=== PATIENT | male | born 1945 | race Caucasian/White ===

== ENCOUNTER 2017-11-05 19:36 | Inpatient (IN) | payer MEDICARE ==
[~2017-11-05] VITALS: Ht 170.2 cm; Wt 87.7 kg
[~2017-11-05 19:36] MED LIST: APIX2.5T PO; METO-304 PO; PANT40TA4 PO; PRO40 PO
[2017-11-05 19:40] VITALS: BP_SYST 114
[2017-11-05] MEDS ORDERED: methylPREDNISolone SOD SUCC/PF 62.5 MG/ML VIAL IVP ONE (22:15)
[2017-11-05] MEDS ORDERED: IPRATROPIUM/ALBUTEROL SULFATE 3 ML AMPUL.NEB INH ONE (22:15)
[2017-11-05 22:48] LABS: BASOPHILS % (AUTO) 0.5 % (0.0-2.0); EOSINOPHILS # (AUTO) 0.1 K/uL (0.0-0.4); EOSINOPHILS % (AUTO) 1.2 % (0.0-4.0); HEMATOCRIT 34.6 % (36-54); HEMOGLOBIN 10.9 g/dL (14.0-18.0); LYMPHOCYTES # (AUTO) 0.6 K/uL (1.0-5.5); LYMPHOCYTES % (AUTO) 12.8 % (20.5-51.5); MEAN CORPUSCULAR HEMOGLOBIN 29 pg (27-31); MEAN CORPUSCULAR HGB CONC 31 % (32-36); MEAN CORPUSCULAR VOLUME 94 fL (79.0-98.0); MONOCYTES # (AUTO) 0.3 K/uL (0.0-1.0); MONOCYTES % (AUTO) 6.8 % (1.7-9.3); NEUTROPHILS # (AUTO) 3.4 K/uL (1.8-7.7); NEUTROPHILS % (AUTO) 78.7 % (40.0-70.0); PLATELET COUNT (AUTO) 157 K/uL (130-430); RED BLOOD CELL COUNT(AUTO) 3.69 MIL/uL (4.2-6.2); RED CELL DISTRIBUTION WIDTH 16.3 % (9.0-15.0); WHITE BLOOD COUNT (AUTO) 4.4 K/uL (4.8-10.8)
[2017-11-05 23:02] LABS: ALANINE AMINOTRANSFERASE 29 U/L (12-78); ALBUMIN 3.1 g/dL (3.4-4.8); ANION GAP 12 (5-15); ASPARTATE AMINOTRANSFERASE 15 U/L (10-37); CHLORIDE 108 mmol/L (98-107); CREATININE 4.33 mg/dL (0.55-1.30); GLUCOSE 96 mg/dL (70-99); LIPASE 111 U/L (73-393); POTASSIUM 4.8 mmol/L (3.5-5.1); SODIUM SERUM 144 mmol/L (136-145); TOTAL BILIRUBIN 0.6 mg/dL (0.0-1.0); UREA NITROGEN, BLOOD 56 mg/dL (8-21)
[2017-11-06 00:29] LABS: BILIRUBIN,URINE NEGATIVE (NEGATIVE); BLOOD, URINE NEGATIVE (NEGATIVE); CLARITY/URINE CLEAR (CLEAR); COLOR,URINE YELLOW (YELLOW); GLUCOSE,URINE NEGATIVE (NEGATIVE); KETONES,URINE NEGATIVE (NEGATIVE); LEUKOCYTE ESTERASE ,URINE NEGATIVE (NEGATIVE); NITRITE, URINE NEGATIVE (NEGATIVE); PROTEIN URINE 3+ (NEGATIVE)
[2017-11-06 00:35] LABS: BACTERIA,URINE RARE /HPF (None Seen); RBC,URINE 0-3 /HPF (0-3); WBC,URINE 0-3 /HPF (0-3)
[2017-11-06 00:49] VITALS: BP_SYST 140
[2017-11-06] MEDS ORDERED: AZITHROMYCIN 500 MG in NS 250 ML IV ONE (01:30)
[2017-11-06] MEDS ORDERED: PIPERACILLIN/TAZOBACTAM 2.25 GM in NS 50 ML IV ONE (01:30)
[2017-11-06] MEDS ORDERED: AZITHROMYCIN 500 MG/VIAL (ZITHROMAX) IV ONE (02:16)
[2017-11-06] MEDS ORDERED: PIPERACILLIN/TAZOBACTAM 2.25 GM VIAL IV ONE (02:16)
[2017-11-06] MEDS: PIPERACILLIN/TAZOBACTAM 2.25 GM in NS 50 ML IV SCH ×3 (06:01→17:11)
[2017-11-06 06:47] VITALS: BP_SYST 140
[2017-11-06 08:00] VITALS: BP_SYST 128; BP_SYST 135
[2017-11-06] MEDS ORDERED: APIXABAN 2.5 MG TABLET PO ONE (09:45)
[2017-11-06] MEDS ORDERED: METOPROLOL SUCCINATE 25 MG TAB.SR.24H (TOPROL XL) PO ONE (09:45)
[2017-11-06] MEDS ORDERED: PANTOPRAZOLE SODIUM 40 MG TAB PO ONE (09:45)
[2017-11-06] MEDS ORDERED: DEXTROSE 50% JECT 50 ML DISP.SYRIN IVP PRN (10:00)
[2017-11-06] MEDS ORDERED: INSULIN REGULAR, HUMAN 100 UNITS/ML, 10 ML VIAL (novoLIN R) SUBCUT PRN (10:00)
[2017-11-06 11:29] VITALS: BP_SYST 119
[2017-11-06] MEDS: IPRATROPIUM/ALBUTEROL SULFATE 3 ML AMPUL.NEB INH SCH ×2 (13:23→22:58)
[2017-11-06] MEDS ORDERED: FUROSEMIDE 40 MG/4 ML VIAL IVP SCH (15:00)
[2017-11-06 15:26] VITALS: BP_SYST 100
[2017-11-06] MEDS ORDERED: IPRATROPIUM/ALBUTEROL SULFATE 3 ML AMPUL.NEB INH PRN ×2 (17:15)
[2017-11-06] MEDS ORDERED: methylPREDNISolone SOD SUCC/PF 62.5 MG/ML VIAL IVP SCH (17:15)
[2017-11-06] MEDS ORDERED: CALCITRIOL 0.25 MCG CAPSULE PO SCH (17:15)
[2017-11-06 19:45] VITALS: BP_SYST 104
[2017-11-06] MEDS ORDERED: APIXABAN 2.5 MG TABLET PO SCH (21:00)
[2017-11-06] MEDS: CALCIUM ACETATE 667 MG CAP PO SCH (21:46)
[2017-11-06] MEDS: methylPREDNISolone SOD SUCC 40 MG/ML VIAL IVP SCH (21:51)
[2017-11-06] MEDS: METOPROLOL SUCCINATE 25 MG TAB.SR.24H (TOPROL XL) PO SCH (21:52)
[2017-11-06] MEDS: AZITHROMYCIN 500 MG in NS 250 ML IV SCH (21:52)
[2017-11-07] VITALS (8 sets, daily range): BP systolic 107–131
[2017-11-07] MEDS: PIPERACILLIN/TAZOBACTAM 2.25 GM in NS 50 ML IV SCH ×5 (00:50→23:36)
[2017-11-07] MEDS: TEMAZEPAM 7.5 MG CAPSULE PO PRN ×2 (00:50→23:36)
[2017-11-07] MEDS: IPRATROPIUM/ALBUTEROL SULFATE 3 ML AMPUL.NEB INH SCH ×4 (02:36→19:38)
[2017-11-07] MEDS: methylPREDNISolone SOD SUCC 40 MG/ML VIAL IVP SCH ×2 (05:45→21:46)
[2017-11-07 08:18] LABS: BASOPHILS % (AUTO) 0.1 % (0.0-2.0); EOSINOPHILS % (AUTO) 0.1 % (0.0-4.0); HEMATOCRIT 30.7 % (36-54); HEMOGLOBIN 9.9 g/dL (14.0-18.0); LYMPHOCYTES # (AUTO) 0.4 K/uL (1.0-5.5); MEAN CORPUSCULAR HEMOGLOBIN 30 pg (27-31); MEAN CORPUSCULAR HGB CONC 32 % (32-36); MEAN CORPUSCULAR VOLUME 92 fL (79.0-98.0); MONOCYTES # (AUTO) 0.3 K/uL (0.0-1.0); NEUTROPHILS # (AUTO) 4.7 K/uL (1.8-7.7); NEUTROPHILS % (AUTO) 86.8 % (40.0-70.0); PLATELET COUNT (AUTO) 129 K/uL (130-430); RED BLOOD CELL COUNT(AUTO) 3.36 MIL/uL (4.2-6.2); WHITE BLOOD COUNT (AUTO) 5.4 K/uL (4.8-10.8)
[2017-11-07 08:51] LABS: ANION GAP 13 (5-15); CHLORIDE 107 mmol/L (98-107); CHOLESTEROL 95 mg/dL (<200); CREATININE 4.46 mg/dL (0.55-1.30); GLUCOSE 100 mg/dL (70-99); HDL CHOLESTEROL 36 mg/dL (>45); LDL CHOLESTEROL 56 mg/dL (<100); LIPASE 107 U/L (73-393); PHOSPHORUS 6.6 mg/dL (2.7-4.5); POTASSIUM 4.7 mmol/L (3.5-5.1); SODIUM SERUM 144 mmol/L (136-145); THYROID STIMULATING HORMONE 0.68 uIu/mL (0.34-4.82); TRIGLYCERIDES 60 mg/dL (30-150); UREA NITROGEN, BLOOD 63 mg/dL (8-21)
[2017-11-07 08:56] LABS: CALCIUM 6.3 mg/dL (8.4-11.0)
[2017-11-07] MEDS: CALCITRIOL 0.25 MCG CAPSULE PO SCH (09:17)
[2017-11-07] MEDS: CALCIUM ACETATE 667 MG CAP PO SCH ×3 (09:17→17:19)
[2017-11-07] MEDS: FUROSEMIDE 40 MG/4 ML VIAL IVP SCH (09:18)
[2017-11-07] MEDS: METOPROLOL SUCCINATE 25 MG TAB.SR.24H (TOPROL XL) PO SCH ×2 (09:18→21:45)
[2017-11-07] MEDS: PANTOPRAZOLE SODIUM 40 MG TAB PO SCH (09:19)
[2017-11-07] MEDS ORDERED: HEPARIN SODIUM,PORCINE 5000 UNITS/ML VIAL ONE ×2 (10:18→18:32)
[2017-11-07] MEDS ORDERED: HEPARIN SODIUM,PORCINE 5000 UNITS/ML VIAL MC ONE (11:00)
[2017-11-07] MEDS ORDERED: HEPARIN SODIUM, PORCINE 10,000 UNITS/ 10 ML VIAL IV SCH (18:15)
[2017-11-07] MEDS ORDERED: HEPARIN SODIUM, PORCINE 10,000 UNITS/ 10 ML VIAL ONE (18:21)
[2017-11-07] MEDS ORDERED: HEPARIN SODIUM,PORCINE 5000 UNITS/ML VIAL MC SCH (18:45)
[2017-11-07] MEDS: AZITHROMYCIN 500 MG in NS 250 ML IV SCH (21:45)
[2017-11-08 00:39] VITALS: BP_SYST 120
[2017-11-08] MEDS: IPRATROPIUM/ALBUTEROL SULFATE 3 ML AMPUL.NEB INH SCH ×3 (01:22→18:59)
[2017-11-08 04:00] VITALS: BP_SYST 128
[2017-11-08] MEDS: PIPERACILLIN/TAZOBACTAM 2.25 GM in NS 50 ML IV SCH ×4 (06:10→23:28)
[2017-11-08 08:00] VITALS: BP_SYST 153
[2017-11-08] MEDS: CALCITRIOL 0.25 MCG CAPSULE PO SCH (08:27)
[2017-11-08] MEDS: methylPREDNISolone SOD SUCC 40 MG/ML VIAL IVP SCH ×2 (08:29→21:13)
[2017-11-08] MEDS: FUROSEMIDE 40 MG/4 ML VIAL IVP SCH (08:30)
[2017-11-08] MEDS: CALCIUM ACETATE 667 MG CAP PO SCH ×3 (08:30→17:41)
[2017-11-08] MEDS: PANTOPRAZOLE SODIUM 40 MG TAB PO SCH (08:32)
[2017-11-08] MEDS: METOPROLOL SUCCINATE 25 MG TAB.SR.24H (TOPROL XL) PO SCH ×2 (08:34→21:13)
[2017-11-08 12:53] VITALS: BP_SYST 123
[2017-11-08 16:39] VITALS: BP_SYST 138
[2017-11-08 19:48] VITALS: BP_SYST 128
[2017-11-08] MEDS: AZITHROMYCIN 500 MG in NS 250 ML IV SCH (21:10)
[2017-11-09] MEDS: IPRATROPIUM/ALBUTEROL SULFATE 3 ML AMPUL.NEB INH SCH ×4 (00:27→19:49)
[2017-11-09 00:55] VITALS: BP_SYST 127
[2017-11-09] MEDS: PIPERACILLIN/TAZOBACTAM 2.25 GM in NS 50 ML IV SCH ×4 (05:06→23:46)
[2017-11-09 07:53] LABS: BASOPHILS % (AUTO) 0.2 % (0.0-2.0); HEMATOCRIT 32.6 % (36-54); HEMOGLOBIN 10.3 g/dL (14.0-18.0); LYMPHOCYTES # (AUTO) 0.2 K/uL (1.0-5.5); LYMPHOCYTES % (AUTO) 2.7 % (20.5-51.5); MEAN CORPUSCULAR HEMOGLOBIN 29 pg (27-31); MEAN CORPUSCULAR HGB CONC 32 % (32-36); MEAN CORPUSCULAR VOLUME 92 fL (79.0-98.0); MONOCYTES # (AUTO) 0.2 K/uL (0.0-1.0); MONOCYTES % (AUTO) 3.6 % (1.7-9.3); NEUTROPHILS # (AUTO) 5.2 K/uL (1.8-7.7); NEUTROPHILS % (AUTO) 93.5 % (40.0-70.0); PLATELET COUNT (AUTO) 94 K/uL (130-430); RED BLOOD CELL COUNT(AUTO) 3.54 MIL/uL (4.2-6.2); WHITE BLOOD COUNT (AUTO) 5.6 K/uL (4.8-10.8)
[2017-11-09] MEDS: CALCIUM ACETATE 667 MG CAP PO SCH ×3 (08:00→17:58)
[2017-11-09 08:10] LABS: ANION GAP 12 (5-15); CALCIUM 7.4 mg/dL (8.4-11.0); CHLORIDE 103 mmol/L (98-107); CREATININE 4.02 mg/dL (0.55-1.30); GLUCOSE 132 mg/dL (70-99); POTASSIUM 4.1 mmol/L (3.5-5.1); SODIUM SERUM 141 mmol/L (136-145); UREA NITROGEN, BLOOD 54 mg/dL (8-21)
[2017-11-09 08:18] LABS: ALANINE AMINOTRANSFERASE 24 U/L (12-78); ALBUMIN 2.8 g/dL (3.4-4.8); ASPARTATE AMINOTRANSFERASE 16 U/L (10-37); TOTAL BILIRUBIN 0.6 mg/dL (0.0-1.0)
[2017-11-09 08:26] VITALS: BP_SYST 138
[2017-11-09] MEDS: PANTOPRAZOLE SODIUM 40 MG TAB PO SCH (10:02)
[2017-11-09] MEDS: METOPROLOL SUCCINATE 25 MG TAB.SR.24H (TOPROL XL) PO SCH ×2 (10:03→21:19)
[2017-11-09] MEDS: CALCITRIOL 0.25 MCG CAPSULE PO SCH (10:03)
[2017-11-09] MEDS: FUROSEMIDE 40 MG/4 ML VIAL IVP SCH (10:04)
[2017-11-09 11:31] VITALS: BP_SYST 134
[2017-11-09 12:07] LABS: HEPATITIS A AB, IgM Negative (Negative); HEPATITIS B CORE AB, IgM Negative (Negative); HEPATITIS B SURFACE AG Negative (Negative)
[2017-11-09 15:32] VITALS: BP_SYST 122
[2017-11-09] MEDS: VITAMIN B COMPLEX WITH C TAB/CAP PO SCH (16:15)
[2017-11-09 16:35] LABS: TOTAL IRON BIND. CAPACITY 364 ug/dL (250-450)
[2017-11-09] MEDS ORDERED: THIAMINE HCL 100 MG TABLET PO ONE (17:00)
[2017-11-09] MEDS ORDERED: CYANOCOBALAMIN 1000 mCg TABLET PO ONE (17:00)
[2017-11-09 20:00] VITALS: BP_SYST 131
[2017-11-09] MEDS: AZITHROMYCIN 500 MG in NS 250 ML IV SCH (21:14)
[2017-11-09] MEDS: PREDNISONE 20 MG TABLET PO SCH (21:19)
[2017-11-09 23:24] VITALS: BP_SYST 117
[2017-11-10] MEDS: IPRATROPIUM/ALBUTEROL SULFATE 3 ML AMPUL.NEB INH SCH ×4 (00:37→19:00)
[2017-11-10] MEDS: TEMAZEPAM 7.5 MG CAPSULE PO PRN (00:44)
[2017-11-10] MEDS: PIPERACILLIN/TAZOBACTAM 2.25 GM in NS 50 ML IV SCH ×3 (05:35→20:33)
[2017-11-10 08:31] VITALS: BP_SYST 133
[2017-11-10] MEDS: FUROSEMIDE 40 MG/4 ML VIAL IVP SCH (08:34)
[2017-11-10] MEDS: CALCIUM ACETATE 667 MG CAP PO SCH ×3 (08:34→18:00)
[2017-11-10] MEDS: CALCITRIOL 0.25 MCG CAPSULE PO SCH (08:34)
[2017-11-10] MEDS: FERROUS SULFATE 325 MG TABLET.DR PO SCH ×2 (08:36→20:32)
[2017-11-10] MEDS: PANTOPRAZOLE SODIUM 40 MG TAB PO SCH (08:36)
[2017-11-10] MEDS: THIAMINE HCL 100 MG TABLET PO SCH (08:36)
[2017-11-10] MEDS: PREDNISONE 20 MG TABLET PO SCH ×2 (08:36→20:32)
[2017-11-10] MEDS: CYANOCOBALAMIN 1000 mCg TABLET PO SCH (08:36)
[2017-11-10] MEDS: METOPROLOL SUCCINATE 25 MG TAB.SR.24H (TOPROL XL) PO SCH ×2 (08:37→20:39)
[2017-11-10] MEDS: VITAMIN B COMPLEX WITH C TAB/CAP PO SCH (08:37)
[2017-11-10 09:53] VITALS: BP_SYST 133
[2017-11-10 11:36] VITALS: BP_SYST 134
[2017-11-10 15:12] VITALS: BP_SYST 143
[2017-11-10] MEDS ORDERED: NACL 0.9% 1,000 ML IV SCH (17:16)
[2017-11-10 19:08] VITALS: BP_SYST 121
[2017-11-10] MEDS: AZITHROMYCIN 500 MG in NS 250 ML IV SCH (20:33)
[2017-11-10] MEDS: APIXABAN 2.5 MG TABLET PO SCH (21:00)
[2017-11-11 00:30] VITALS: BP_SYST 112
[2017-11-11] MEDS: PIPERACILLIN/TAZOBACTAM 2.25 GM in NS 50 ML IV SCH ×2 (00:44→05:34)
[2017-11-11] MEDS: IPRATROPIUM/ALBUTEROL SULFATE 3 ML AMPUL.NEB INH SCH ×3 (00:57→08:03)
[2017-11-11 07:56] VITALS: BP_SYST 121
[2017-11-11] MEDS: CALCITRIOL 0.25 MCG CAPSULE PO SCH (08:59)
[2017-11-11] MEDS: METOPROLOL SUCCINATE 25 MG TAB.SR.24H (TOPROL XL) PO SCH (08:59)
[2017-11-11] MEDS: CYANOCOBALAMIN 1000 mCg TABLET PO SCH (09:00)
[2017-11-11] MEDS: CALCIUM ACETATE 667 MG CAP PO SCH (09:00)
[2017-11-11] MEDS: FERROUS SULFATE 325 MG TABLET.DR PO SCH (09:00)
[2017-11-11] MEDS: APIXABAN 2.5 MG TABLET PO SCH (09:00)
[2017-11-11] MEDS: PREDNISONE 20 MG TABLET PO SCH (09:00)
[2017-11-11] MEDS: PANTOPRAZOLE SODIUM 40 MG TAB PO SCH (09:01)
[2017-11-11] MEDS: THIAMINE HCL 100 MG TABLET PO SCH (09:01)
[2017-11-11] MEDS: VITAMIN B COMPLEX WITH C TAB/CAP PO SCH (09:03)
[2017-11-11] MEDS: FUROSEMIDE 40 MG/4 ML VIAL IVP SCH (09:06)
[2017-11-11 09:49] VITALS: BP_SYST 121
== END 2017-11-11 11:25 | disposition home or self-care (01) | DRG 291 ==
LOC: SED 19:36 → STU 11-06 00:27 → SMU 11-08 14:55
PROVIDERS: ADMIT Internal Medicine; ATTEND Internal Medicine
PROC: 02HV33Z Insertion of Infusion Device into Superior Vena Cava, Percutaneous Approach (ICD-10-PCS; 2017-11-10)
PROC: 02PYX3Z Removal of Infusion Device from Great Vessel, External Approach (ICD-10-PCS; principal; 2017-11-10 17:00)
DX: I13.2 Hypertensive heart and chronic kidney disease with heart failure and with stage 5 chronic kidney disease, or end stage renal disease (principal); I50.43 Acute on chronic combined systolic (congestive) and diastolic (congestive) heart failure; N17.0 Acute kidney failure with tubular necrosis; J96.01 Acute respiratory failure with hypoxia; J18.9 Pneumonia, unspecified organism; E11.21 Type 2 diabetes mellitus with diabetic nephropathy; K56.7 Ileus, unspecified; N18.6 End stage renal disease; I48.2 Chronic atrial fibrillation; E66.01 Morbid (severe) obesity due to excess calories; J44.0 Chronic obstructive pulmonary disease with (acute) lower respiratory infection; J44.1 Chronic obstructive pulmonary disease with (acute) exacerbation; I34.0 Nonrheumatic mitral (valve) insufficiency; E11.22 Type 2 diabetes mellitus with diabetic chronic kidney disease; E78.5 Hyperlipidemia, unspecified; D64.9 Anemia, unspecified; E83.51 Hypocalcemia; F17.200 Nicotine dependence, unspecified, uncomplicated; K57.90 Diverticulosis of intestine, part unspecified, without perforation or abscess without bleeding; Z79.01 Long term (current) use of anticoagulants; Z83.3 Family history of diabetes mellitus; Z87.11 Personal history of peptic ulcer disease; Z98.84 Bariatric surgery status; Z79.899 Other long term (current) drug therapy
CPT/HCPCS: 36415; 36600; 71010; 71250-TC; 76000; 76770; 80048; 80053; 80061; 81000-TC; 82306; 82803-TC; 82962; 83540-TC; 83550-TC; 83605; 83690-TC; 83880; 84100-TC; 84443-TC; 84484; 85025; 86705; 86709; 87040-TC; 87340; 90935; 90937; 93005; 93306; 94640; 94760; 96374; 97110-GP; 97116-GP; 97530-GP; 99285; C1751; J0456; J1030; J1644; J1815; J1940; J1956; J2543; J2930; J7030; J7050; J7060; J7512

== ENCOUNTER 2018-08-14 13:05 | Inpatient (IN) | payer MEDICARE ==
[~2018-08-14] VITALS: Ht 170.2 cm; Wt 87.5 kg
[~2018-08-14 13:05] MED LIST changes: -METO-304 PO; +METO-540 PO; -PRO40 PO
[2018-08-14 13:10] VITALS: BP_SYST 99
[2018-08-14 14:04] LABS: BASOPHILS % (AUTO) 0.7 % (0.0-2.0); EOSINOPHILS # (AUTO) 0.1 K/uL (0.0-0.4); EOSINOPHILS % (AUTO) 1.5 % (0.0-4.0); HEMATOCRIT 45.8 % (36-54); HEMOGLOBIN 14.5 g/dL (14.0-18.0); LYMPHOCYTES # (AUTO) 0.5 K/uL (1.0-5.5); LYMPHOCYTES % (AUTO) 8.8 % (20.5-51.5); MEAN CORPUSCULAR HEMOGLOBIN 34 pg (27-31); MEAN CORPUSCULAR HGB CONC 32 % (32-36); MEAN CORPUSCULAR VOLUME 106 fL (79.0-98.0); MONOCYTES # (AUTO) 0.4 K/uL (0.0-1.0); NEUTROPHILS # (AUTO) 4.9 K/uL (1.8-7.7); PLATELET COUNT (AUTO) 179 K/uL (130-430); RED BLOOD CELL COUNT(AUTO) 4.31 MIL/uL (4.2-6.2); RED CELL DISTRIBUTION WIDTH 13.5 % (9.0-15.0); WHITE BLOOD COUNT (AUTO) 5.9 K/uL (4.8-10.8)
[2018-08-14 14:11] LABS: INR 1.1 (0.80-1.20); PROTHROMBIN TIME 10.7 SECS (9.5-12.5)
[2018-08-14 14:12] LABS: ANION GAP 4 (5-15); CALCIUM 7.9 mg/dL (8.4-11.0); CHLORIDE 102 mmol/L (98-107); CREATININE 3.46 mg/dL (0.55-1.30); GLUCOSE 102 mg/dL (70-99); POTASSIUM 4.5 mmol/L (3.5-5.1); SODIUM SERUM 134 mmol/L (136-145); UREA NITROGEN, BLOOD 24 mg/dL (8-21)
[2018-08-14 14:27] LABS: ALANINE AMINOTRANSFERASE 17 U/L (12-78); ALBUMIN 3.4 g/dL (3.4-4.8); ASPARTATE AMINOTRANSFERASE 10 U/L (10-37); FREE T4 (FREE THYROXINE) 0.8 ng/dL (0.6-1.6); TOTAL BILIRUBIN 0.7 mg/dL (0.0-1.0)
[2018-08-14 14:28] LABS: ALCOHOL, BLOOD < 3 mg/dL (<10)
[2018-08-14] MEDS ORDERED: MORPHINE SULFATE 10MG/10ML PF AMP EP ONE (14:30)
[2018-08-14] MEDS ORDERED: PROPOFOL 200MG/ 20ML VIAL (DIPRIVAN) IV ONE (14:30)
[2018-08-14] MEDS ORDERED: CEFAZOLIN 2 GM IVPB PREMIX 50 ML IV ONE (14:30)
[2018-08-14] MEDS ORDERED: MIDAZOLAM HCL 5 MG/5 ML VIAL IVP ONE (14:30)
[2018-08-14] MEDS ORDERED: ePHEDrine sulfate 50 MG/ML VIAL IVP ONE (14:30)
[2018-08-14] MEDS ORDERED: NS 500 ML IV.SOLN IV ONE (14:30)
[2018-08-14] MEDS ORDERED: TRANEXAMIC ACID 1,000 MG/10 ML VIAL IV ONE (14:30)
[2018-08-14] MEDS ORDERED: MORPHINE 2 MG/ML INJ. SYRINGE IVP ONE (16:45)
[2018-08-14] MEDS ORDERED: ONDANSETRON HCL 4 MG/2 ML VIAL IM PRN (16:45)
[2018-08-14] MEDS ORDERED: DIPHENHYDRAMINE INJ 50 MG/ML VIAL IVP ONE (16:45)
[2018-08-14 17:19] VITALS: BP_SYST 116
[2018-08-14] MEDS: MORPHINE 4 MG/ML INJ. SYRINGE IVP PRN (20:27)
[2018-08-14 20:28] VITALS: BP_SYST 127
[2018-08-14 21:12] LABS: BILIRUBIN,URINE NEGATIVE (NEGATIVE); BLOOD, URINE NEGATIVE (NEGATIVE); CLARITY/URINE CLEAR (CLEAR); COLOR,URINE YELLOW (YELLOW); GLUCOSE,URINE NEGATIVE (NEGATIVE); KETONES,URINE NEGATIVE (NEGATIVE); LEUKOCYTE ESTERASE ,URINE NEGATIVE (NEGATIVE); NITRITE, URINE NEGATIVE (NEGATIVE); PROTEIN URINE 2+ (NEGATIVE)
[2018-08-14 21:14] LABS: BACTERIA,URINE FEW /HPF (None Seen); RBC,URINE 0-3 /HPF (0-3); WBC,URINE 0-3 /HPF (0-3)
[2018-08-14] MEDS ORDERED: DEXTROSE 50% JECT 50 ML DISP.SYRIN IVP PRN ×2 (21:15)
[2018-08-14] MEDS ORDERED: DIPH-TET-PERTUS Vaccine 0.5 ML VIAL (ADACEL) I.M. ONE (21:15)
[2018-08-14 21:17] LABS: BARBITURATE, URINE NEGATIVE (NEG <=200); BENZODIAZEPINE, URINE NEGATIVE (NEG <=150); CANNABINOID, URINE NEGATIVE (NEG <=50); COCAINE, URINE NEGATIVE (NEG <=150); METHAMPHETAMINES SCREEN,URINE NEGATIVE (NEG <=500); PHENCYCLIDINE SCREEN,URINE NEGATIVE (NEG <=25); URINE AMPHETAMINE NEGATIVE (NEG <=500); URINE METHADONE NEGATIVE (NEG <=200)
[2018-08-14 21:18] LABS: OPIATE, URINE POSITIVE (NEG <=100); UR TRICYCLIC ANTIDEPRESSANTS NEGATIVE (NEG <=300); URINE OXYCODONE SCREEN NEGATIVE (NEG <=100); URINE PROPOXYPHENE SCREEN NEGATIVE (NEG <=300)
[2018-08-14] MEDS ORDERED: IPRATROPIUM/ALBUTEROL SULFATE 3 ML AMPUL.NEB INH PRN (21:30)
[2018-08-14] MEDS ORDERED: DIPHENHYDRAMINE INJ 50 MG/ML VIAL IVP PRN (21:45)
[2018-08-14] MEDS ORDERED: TEMAZEPAM 7.5 MG CAPSULE PO PRN (21:45)
[2018-08-14] MEDS ORDERED: ACETAMINOPHEN 325 MG TABLET PO PRN (21:45)
[2018-08-14] MEDS: PANTOPRAZOLE SODIUM 40 MG/VIAL (PROTONIX) IVP SCH (22:28)
[2018-08-14] MEDS: MORPHINE 2 MG/ML INJ. SYRINGE IVP PRN (22:57)
[2018-08-14 23:00] VITALS: BP_SYST 127
[2018-08-15 00:45] VITALS: BP_SYST 138
[2018-08-15] MEDS: MORPHINE 4 MG/ML INJ. SYRINGE IVP PRN ×3 (01:24→20:52)
[2018-08-15 05:25] LABS: BASOPHILS % (AUTO) 0.5 % (0.0-2.0); EOSINOPHILS # (AUTO) 0.2 K/uL (0.0-0.4); HEMATOCRIT 43.1 % (36-54); HEMOGLOBIN 13.8 g/dL (14.0-18.0); LYMPHOCYTES # (AUTO) 0.8 K/uL (1.0-5.5); LYMPHOCYTES % (AUTO) 14.3 % (20.5-51.5); MEAN CORPUSCULAR HEMOGLOBIN 34 pg (27-31); MEAN CORPUSCULAR HGB CONC 32 % (32-36); MEAN CORPUSCULAR VOLUME 107 fL (79.0-98.0); MONOCYTES # (AUTO) 0.6 K/uL (0.0-1.0); MONOCYTES % (AUTO) 9.6 % (1.7-9.3); NEUTROPHILS # (AUTO) 4.2 K/uL (1.8-7.7); NEUTROPHILS % (AUTO) 72.6 % (40.0-70.0); PLATELET COUNT (AUTO) 160 K/uL (130-430); RED BLOOD CELL COUNT(AUTO) 4.02 MIL/uL (4.2-6.2); WHITE BLOOD COUNT (AUTO) 5.8 K/uL (4.8-10.8)
[2018-08-15 05:27] LABS: RED CELL DISTRIBUTION WIDTH 13.1 % (9.0-15.0)
[2018-08-15 05:48] LABS: ANION GAP 9 (5-15); CALCIUM 7.4 mg/dL (8.4-11.0); CHLORIDE 100 mmol/L (98-107); GLUCOSE 87 mg/dL (70-99); POTASSIUM 4.6 mmol/L (3.5-5.1); SODIUM SERUM 138 mmol/L (136-145); UREA NITROGEN, BLOOD 34 mg/dL (8-21)
[2018-08-15] MEDS: INSULIN REGULAR, HUMAN 100 UNITS/ML, 10 ML VIAL (novoLIN R) SUBCUT PRN ×2 (06:13→20:50)
[2018-08-15] MEDS ORDERED: PANTOPRAZOLE SODIUM 40 MG TAB PO SCH (07:00)
[2018-08-15 08:07] VITALS: BP_SYST 133
[2018-08-15] MEDS ORDERED: PANTOPRAZOLE SODIUM 40 MG/VIAL (PROTONIX) ONE (08:25)
[2018-08-15] MEDS: PANTOPRAZOLE SODIUM 40 MG/VIAL (PROTONIX) IVP SCH (08:27)
[2018-08-15] MEDS: METOPROLOL SUCCINATE 25 MG TAB.SR.24H (TOPROL XL) PO SCH ×2 (08:28→20:52)
[2018-08-15 12:25] VITALS: BP_SYST 117
[2018-08-15 13:39] LABS: URINE SODIUM, RANDOM 41 mmol/L (40-220)
[2018-08-15 16:13] VITALS: BP_SYST 110
[2018-08-15 20:00] VITALS: BP_SYST 110
[2018-08-16 00:25] VITALS: BP_SYST 134
[2018-08-16] MEDS: MORPHINE 4 MG/ML INJ. SYRINGE IVP PRN ×4 (04:13→20:22)
[2018-08-16] MEDS: INSULIN REGULAR, HUMAN 100 UNITS/ML, 10 ML VIAL (novoLIN R) SUBCUT PRN (06:00)
[2018-08-16 06:58] LABS: BASOPHILS % (AUTO) 0.2 % (0.0-2.0); EOSINOPHILS # (AUTO) 0.2 K/uL (0.0-0.4); EOSINOPHILS % (AUTO) 2.1 % (0.0-4.0); HEMATOCRIT 43.6 % (36-54); HEMOGLOBIN 14.1 g/dL (14.0-18.0); LYMPHOCYTES # (AUTO) 0.5 K/uL (1.0-5.5); LYMPHOCYTES % (AUTO) 6.4 % (20.5-51.5); MEAN CORPUSCULAR HEMOGLOBIN 35 pg (27-31); MEAN CORPUSCULAR HGB CONC 32 % (32-36); MEAN CORPUSCULAR VOLUME 107 fL (79.0-98.0); MONOCYTES # (AUTO) 0.7 K/uL (0.0-1.0); NEUTROPHILS # (AUTO) 6.7 K/uL (1.8-7.7); NEUTROPHILS % (AUTO) 83.3 % (40.0-70.0); PLATELET COUNT (AUTO) 161 K/uL (130-430); RED BLOOD CELL COUNT(AUTO) 4.07 MIL/uL (4.2-6.2); RED CELL DISTRIBUTION WIDTH 13.4 % (9.0-15.0); WHITE BLOOD COUNT (AUTO) 8.1 K/uL (4.8-10.8)
[2018-08-16 07:05] LABS: ALANINE AMINOTRANSFERASE 15 U/L (12-78); ALBUMIN 2.9 g/dL (3.4-4.8); ANION GAP 13 (5-15); ASPARTATE AMINOTRANSFERASE 10 U/L (10-37); CALCIUM 7.4 mg/dL (8.4-11.0); CHLORIDE 99 mmol/L (98-107); CREATININE 4.83 mg/dL (0.55-1.30); GLUCOSE 83 mg/dL (70-99); POTASSIUM 4.9 mmol/L (3.5-5.1); SODIUM SERUM 136 mmol/L (136-145); TOTAL BILIRUBIN 0.8 mg/dL (0.0-1.0); UREA NITROGEN, BLOOD 47 mg/dL (8-21)
[2018-08-16 08:00] VITALS: BP_SYST 121
[2018-08-16] MEDS: METOPROLOL SUCCINATE 25 MG TAB.SR.24H (TOPROL XL) PO SCH ×2 (08:35→20:21)
[2018-08-16] MEDS: PANTOPRAZOLE SODIUM 40 MG/VIAL (PROTONIX) IVP SCH (08:35)
[2018-08-16] MEDS ORDERED: HEPARIN SODIUM, PORCINE 10,000 UNITS/ 10 ML VIAL MC ONE (09:30)
[2018-08-16 11:28] VITALS: BP_SYST 145
[2018-08-16 15:22] VITALS: BP_SYST 130
[2018-08-16 20:00] VITALS: BP_SYST 128
[2018-08-17] VITALS (7 sets, daily range): BP systolic 103–129
[2018-08-17] MEDS: INSULIN REGULAR, HUMAN 100 UNITS/ML, 10 ML VIAL (novoLIN R) SUBCUT PRN (06:19)
[2018-08-17 06:41] LABS: ANION GAP 12 (5-15); CALCIUM 7.8 mg/dL (8.4-11.0); CHLORIDE 102 mmol/L (98-107); CREATININE 3.91 mg/dL (0.55-1.30); GLUCOSE 95 mg/dL (70-99); POTASSIUM 4.6 mmol/L (3.5-5.1); SODIUM SERUM 139 mmol/L (136-145); UREA NITROGEN, BLOOD 40 mg/dL (8-21)
[2018-08-17 06:48] LABS: PHOSPHORUS 5.4 mg/dL (2.7-4.5)
[2018-08-17 06:50] LABS: BASOPHILS % (AUTO) 0.2 % (0.0-2.0); EOSINOPHILS # (AUTO) 0.2 K/uL (0.0-0.4); EOSINOPHILS % (AUTO) 2.3 % (0.0-4.0); HEMATOCRIT 41.9 % (36-54); HEMOGLOBIN 13.6 g/dL (14.0-18.0); LYMPHOCYTES # (AUTO) 0.5 K/uL (1.0-5.5); LYMPHOCYTES % (AUTO) 7.1 % (20.5-51.5); MEAN CORPUSCULAR HEMOGLOBIN 35 pg (27-31); MEAN CORPUSCULAR HGB CONC 33 % (32-36); MEAN CORPUSCULAR VOLUME 106 fL (79.0-98.0); MONOCYTES # (AUTO) 0.8 K/uL (0.0-1.0); MONOCYTES % (AUTO) 10.9 % (1.7-9.3); NEUTROPHILS # (AUTO) 6.1 K/uL (1.8-7.7); NEUTROPHILS % (AUTO) 79.5 % (40.0-70.0); PLATELET COUNT (AUTO) 163 K/uL (130-430); RED BLOOD CELL COUNT(AUTO) 3.95 MIL/uL (4.2-6.2); RED CELL DISTRIBUTION WIDTH 13.5 % (9.0-15.0); WHITE BLOOD COUNT (AUTO) 7.6 K/uL (4.8-10.8)
[2018-08-17] MEDS: PANTOPRAZOLE SODIUM 40 MG/VIAL (PROTONIX) IVP SCH (09:29)
[2018-08-17] MEDS: METOPROLOL SUCCINATE 25 MG TAB.SR.24H (TOPROL XL) PO SCH ×2 (09:30→21:02)
[2018-08-17] MEDS: MORPHINE 4 MG/ML INJ. SYRINGE IVP PRN (10:51)
[2018-08-17] MEDS ORDERED: POLYMYXIN 500,000/BACIT.10,000 UNITS in NS IRR 1 L IR ONE (14:23)
[2018-08-17] MEDS ORDERED: NALBUPHINE HCL 10 MG/ML AMP IVP PRN (15:45)
[2018-08-17] MEDS ORDERED: NALOXONE HCL 0.4 MG/ML AMP (NARCAN) IVP PRN ×2 (15:45)
[2018-08-17] MEDS ORDERED: KETOROLAC TROMETHAMINE 60 MG/2 ML VIAL IM PRN (15:45)
[2018-08-17] MEDS ORDERED: fentaNYL CITRATE/PF 100 MCG/2 ML AMP IVP PRN ×2 (15:45)
[2018-08-17] MEDS ORDERED: MORPHINE SULFATE 10MG/10ML PF AMP SP SCH (15:45)
[2018-08-17] MEDS ORDERED: ONDANSETRON HCL 4 MG/2 ML VIAL IVP PRN (15:45)
[2018-08-17] MEDS ORDERED: DIPHENHYDRAMINE INJ 50 MG/ML VIAL IVP PRN (15:45)
[2018-08-17] MEDS ORDERED: METOCLOPRAMIDE HCL 10 MG/2 ML VIAL IVP PRN (15:45)
[2018-08-17] MEDS ORDERED: DIPHENHYDRAMINE INJ 50 MG/ML VIAL ONE (17:22)
[2018-08-18 06:28] LABS: BASOPHILS % (AUTO) 0.2 % (0.0-2.0); EOSINOPHILS # (AUTO) 0.1 K/uL (0.0-0.4); EOSINOPHILS % (AUTO) 0.9 % (0.0-4.0); HEMATOCRIT 40.9 % (36-54); HEMOGLOBIN 13.6 g/dL (14.0-18.0); LYMPHOCYTES # (AUTO) 0.4 K/uL (1.0-5.5); LYMPHOCYTES % (AUTO) 5.3 % (20.5-51.5); MEAN CORPUSCULAR HEMOGLOBIN 35 pg (27-31); MEAN CORPUSCULAR HGB CONC 33 % (32-36); MEAN CORPUSCULAR VOLUME 106 fL (79.0-98.0); MONOCYTES # (AUTO) 0.7 K/uL (0.0-1.0); MONOCYTES % (AUTO) 9.6 % (1.7-9.3); NEUTROPHILS # (AUTO) 6.6 K/uL (1.8-7.7); PLATELET COUNT (AUTO) 169 K/uL (130-430); RED BLOOD CELL COUNT(AUTO) 3.85 MIL/uL (4.2-6.2); RED CELL DISTRIBUTION WIDTH 13.4 % (9.0-15.0); WHITE BLOOD COUNT (AUTO) 7.8 K/uL (4.8-10.8)
[2018-08-18 06:38] LABS: ANION GAP 13 (5-15); CALCIUM 7.5 mg/dL (8.4-11.0); CHLORIDE 100 mmol/L (98-107); CREATININE 5.05 mg/dL (0.55-1.30); GLUCOSE 104 mg/dL (70-99); POTASSIUM 4.9 mmol/L (3.5-5.1); SODIUM SERUM 136 mmol/L (136-145); UREA NITROGEN, BLOOD 55 mg/dL (8-21)
[2018-08-18] MEDS ORDERED: APIXABAN 2.5 MG TABLET PO SCH (09:00)
[2018-08-18] MEDS: RIVAROXABAN 10 MG TABLET PO SCH (09:33)
[2018-08-18] MEDS: PANTOPRAZOLE SODIUM 40 MG/VIAL (PROTONIX) IVP SCH (09:35)
[2018-08-18] MEDS: METOPROLOL SUCCINATE 25 MG TAB.SR.24H (TOPROL XL) PO SCH ×2 (09:36→22:05)
[2018-08-18 09:58] VITALS: BP_SYST 111
[2018-08-18] MEDS: MORPHINE 4 MG/ML INJ. SYRINGE IVP PRN (11:31)
[2018-08-18 12:02] VITALS: BP_SYST 105
[2018-08-18 16:02] VITALS: BP_SYST 122
[2018-08-19 00:02] VITALS: BP_SYST 101
[2018-08-19 08:00] VITALS: BP_SYST 112
[2018-08-19] MEDS: PANTOPRAZOLE SODIUM 40 MG/VIAL (PROTONIX) IVP SCH (08:46)
[2018-08-19] MEDS: RIVAROXABAN 10 MG TABLET PO SCH (08:47)
[2018-08-19] MEDS: METOPROLOL SUCCINATE 25 MG TAB.SR.24H (TOPROL XL) PO SCH ×2 (08:49→20:48)
[2018-08-19 11:52] VITALS: BP_SYST 102
[2018-08-19] MEDS: MORPHINE 4 MG/ML INJ. SYRINGE IVP PRN (15:59)
[2018-08-19 16:10] VITALS: BP_SYST 112
[2018-08-20 00:24] VITALS: BP_SYST 95
[2018-08-20 06:41] LABS: ANION GAP 15 (5-15); CALCIUM 7.7 mg/dL (8.4-11.0); CHLORIDE 99 mmol/L (98-107); CREATININE 6.14 mg/dL (0.55-1.30); GLUCOSE 87 mg/dL (70-99); POTASSIUM 4.8 mmol/L (3.5-5.1); SODIUM SERUM 136 mmol/L (136-145); UREA NITROGEN, BLOOD 60 mg/dL (8-21)
[2018-08-20 08:04] VITALS: BP_SYST 110
[2018-08-20] MEDS: METOPROLOL SUCCINATE 25 MG TAB.SR.24H (TOPROL XL) PO SCH (08:58)
[2018-08-20] MEDS ORDERED: PANTOPRAZOLE SODIUM 40 MG TAB PO SCH (09:00)
[2018-08-20] MEDS ORDERED: APIXABAN 2.5 MG TABLET PO SCH (09:00)
[2018-08-20] MEDS: MORPHINE 2 MG/ML INJ. SYRINGE IVP PRN ×2 (09:05→16:57)
[2018-08-20 09:32] VITALS: BP_SYST 110
[2018-08-20 12:11] VITALS: BP_SYST 148
[2018-08-20 12:35] VITALS: BP_SYST 111
[2018-08-20 14:40] VITALS: BP_SYST 105
[2018-08-20] MEDS ORDERED: HYDROcodone/ACETAMIN 5-325 MG TAB (NORCO/ VICODIN) PO PRN (17:45)
== END 2018-08-20 18:15 | DRG 469 ==
LOC: SED 13:05 → STU 16:36
PROVIDERS: ADMIT Internal Medicine; ATTEND Internal Medicine
PROC: 5A1D70Z Performance of Urinary Filtration, Intermittent, Less than 6 Hours Per Day (ICD-10-PCS; 2018-08-16)
PROC: 0SRR0JZ Replacement of Right Hip Joint, Femoral Surface with Synthetic Substitute, Open Approach (ICD-10-PCS; principal; 2018-08-17 14:15)
PROC: 5A1D70Z Performance of Urinary Filtration, Intermittent, Less than 6 Hours Per Day (ICD-10-PCS; 2018-08-18)
DX: S72.141A Displaced intertrochanteric fracture of right femur, initial encounter for closed fracture (principal); N18.6 End stage renal disease; I42.0 Dilated cardiomyopathy; I12.0 Hypertensive chronic kidney disease with stage 5 chronic kidney disease or end stage renal disease; D68.59 Other primary thrombophilia; E44.0 Moderate protein-calorie malnutrition; J44.9 Chronic obstructive pulmonary disease, unspecified; E11.22 Type 2 diabetes mellitus with diabetic chronic kidney disease; I48.2 Chronic atrial fibrillation; M81.0 Age-related osteoporosis without current pathological fracture; I34.0 Nonrheumatic mitral (valve) insufficiency; E66.9 Obesity, unspecified; F17.210 Nicotine dependence, cigarettes, uncomplicated; Z60.2 Problems related to living alone; D63.1 Anemia in chronic kidney disease; M62.81 Muscle weakness (generalized); W18.39XA Other fall on same level, initial encounter; Z79.899 Other long term (current) drug therapy; Z98.84 Bariatric surgery status; Z99.2 Dependence on renal dialysis; Z79.01 Long term (current) use of anticoagulants; Z83.3 Family history of diabetes mellitus; Z86.73 Personal history of transient ischemic attack (TIA), and cerebral infarction without residual deficits; Z68.30 Body mass index [BMI] 30.0-30.9, adult; Z84.89 Family history of other specified conditions; Y93.89 Activity, other specified; Y92.89 Other specified places as the place of occurrence of the external cause; Y99.8 Other external cause status
CPT/HCPCS: 36415; 70450-TC; 71045; 73501; 73502; 74018; 80048; 80053; 80307; 81000-TC; 82140-TC; 82306; 82570-TC; 82962; 83036; 83605; 83880; 84100-TC; 84302-TC; 84439; 84443-TC; 84484; 85025; 85610-TC; 86886; 86900; 86901; 86920; 87040-TC; 87081; 88305; 88311; 90715; 90935; 90937; 93005; 93306; 94010; 96374; 97110-GP; 97116-GP; 97163; 97530-GP; 99285; C1776; C9113; G0482; J0690; J1200; J1644; J1815; J1885; J2250; J2270; J2274; J2704; J3490; J7030; J7040

== ENCOUNTER 2018-08-24 00:47 | Emergency (ER) | payer MEDICARE ==
[~2018-08-24] VITALS: Ht 170.2 cm; Wt 66.2 kg
[2018-08-24 00:52] VITALS: BP_SYST 111
[2018-08-24] MEDS ORDERED: NACL 0.9% 1,000 ML IV ONE (01:03)
[2018-08-24] MEDS ORDERED: ONDANSETRON HCL 4 MG/2 ML VIAL IVP ONE (01:15)
[2018-08-24] MEDS ORDERED: MORPHINE 4 MG/ML INJ. SYRINGE IVP ONE (01:15)
[2018-08-24 02:27] LABS: BASOPHILS % (AUTO) 0.3 % (0.0-2.0); EOSINOPHILS # (AUTO) 0.1 K/uL (0.0-0.4); EOSINOPHILS % (AUTO) 1.2 % (0.0-4.0); HEMOGLOBIN 12.4 g/dL (14.0-18.0); LYMPHOCYTES # (AUTO) 0.5 K/uL (1.0-5.5); LYMPHOCYTES % (AUTO) 7.7 % (20.5-51.5); MEAN CORPUSCULAR HEMOGLOBIN 33 pg (27-31); MEAN CORPUSCULAR HGB CONC 31 % (32-36); MEAN CORPUSCULAR VOLUME 105 fL (79.0-98.0); MONOCYTES # (AUTO) 0.5 K/uL (0.0-1.0); MONOCYTES % (AUTO) 7.9 % (1.7-9.3); NEUTROPHILS # (AUTO) 5.6 K/uL (1.8-7.7); NEUTROPHILS % (AUTO) 82.9 % (40.0-70.0); PLATELET COUNT (AUTO) 278 K/uL (130-430); RED BLOOD CELL COUNT(AUTO) 3.81 MIL/uL (4.2-6.2); RED CELL DISTRIBUTION WIDTH 13.2 % (9.0-15.0); WHITE BLOOD COUNT (AUTO) 6.7 K/uL (4.8-10.8)
[2018-08-24 02:32] LABS: ANION GAP 11 (5-15); CALCIUM 8.3 mg/dL (8.4-11.0); CHLORIDE 102 mmol/L (98-107); CREATININE 4.93 mg/dL (0.55-1.30); GLUCOSE 82 mg/dL (70-99); POTASSIUM 3.9 mmol/L (3.5-5.1); SODIUM SERUM 141 mmol/L (136-145); UREA NITROGEN, BLOOD 48 mg/dL (8-21)
[2018-08-24 02:37] LABS: ALANINE AMINOTRANSFERASE 7 U/L (12-78); ALBUMIN 2.5 g/dL (3.4-4.8); AMYLASE 113 U/L (0-100); ASPARTATE AMINOTRANSFERASE 16 U/L (10-37); LIPASE 214 U/L (73-393); TOTAL BILIRUBIN 1.2 mg/dL (0.0-1.0)
[2018-08-24 04:30] VITALS: BP_SYST 118
== END 2018-08-24 04:30 | disposition home or self-care (01) ==
LOC: SED 00:47
DX: G89.29 Other chronic pain (principal); M25.551 Pain in right hip; J44.9 Chronic obstructive pulmonary disease, unspecified; I48.91 Unspecified atrial fibrillation; F17.200 Nicotine dependence, unspecified, uncomplicated; E11.9 Type 2 diabetes mellitus without complications; I10 Essential (primary) hypertension; Z99.2 Dependence on renal dialysis; Z79.899 Other long term (current) drug therapy; W07.XXXA Fall from chair, initial encounter; Y93.89 Activity, other specified; Y92.89 Other specified places as the place of occurrence of the external cause; Y99.8 Other external cause status
CPT/HCPCS: 36415; 71045; 73502; 80053; 82150; 82550; 83690; 84484; 85025; 93005; 96374; 96375; 99285; J2270; J2405; J7030

== ENCOUNTER 2019-01-21 18:14 | Emergency (ER) | payer MEDICARE ==
[~2019-01-21] VITALS: Ht 160 cm; Wt 68.0 kg
--- NOTE | 2019-01-21 18:15 | NUR ---
ER Dr. SANCHEZ at bedside examining patient.
[2019-01-21 18:20] VITALS: BP_SYST 137
--- NOTE | 2019-01-21 18:20 | NUR ---
PATIENT IS AWAKE, ALERT AND ORIENTED X4. PATIENT IS NOT COMPLAINING OF PAIN, NAUSEA, OR VOMITING. PATIENT COMPLAINING OF SHORTNESS OF BREATH BUT PATIENT VERY TALKATIVE. PATIENT ON 2L NC. PATIENT CAME IN BY EMT'S BECAUSE DIALYSIS HAD CALLED DEPUTY'S TO CHECK ON PATIENT BECAUSE HE HAD NOT WENT TO DIALYSIS ALL WEEK. WHEN ASKED, PATIENT SAID HE WENT TO DIALYSIS MON, THU, AND TODAY. PATIENT HYPOTENSIVE WHEN FOUND BY EMT'S.
--- NOTE | 2019-01-21 18:20 | NUR ---
Placed in room 07 . Placed on shoulder boner, blood pressure machine and pulse oximeter. To gown for exam. Side rails up.
[2019-01-21 18:59] LABS: ANION GAP 11 (5-15); CALCIUM 8.2 mg/dL (8.4-11.0); CHLORIDE 110 mmol/L (98-107); CREATININE 4.95 mg/dL (0.55-1.30); GLUCOSE 107 mg/dL (70-99); POTASSIUM 4.8 mmol/L (3.5-5.1); SODIUM SERUM 145 mmol/L (136-145); UREA NITROGEN, BLOOD 79 mg/dL (8-21)
[2019-01-21 19:04] LABS: PROTHROMBIN TIME 10.3 SECS (9.5-12.5)
[2019-01-21 19:05] LABS: ALANINE AMINOTRANSFERASE 11 U/L (12-78); ALBUMIN 2.7 g/dL (3.4-4.8); ASPARTATE AMINOTRANSFERASE 7 U/L (10-37); TOTAL BILIRUBIN 0.3 mg/dL (0.0-1.0)
--- NOTE | 2019-01-21 19:11 | NUR ---
ENDORSED CARE TO JUAN ULRICH.
[2019-01-21 19:21] LABS: HEMOGLOBIN 8.5 g/dL (14.0-18.0); WHITE BLOOD COUNT (AUTO) 6.2 K/uL (4.8-10.8)
[2019-01-21 19:22] LABS: BASOPHILS % (AUTO) 0.7 % (0.0-2.0); EOSINOPHILS # (AUTO) 0.1 K/uL (0.0-0.4); EOSINOPHILS % (AUTO) 1.5 % (0.0-4.0); HEMATOCRIT 25.8 % (36-54); LYMPHOCYTES # (AUTO) 0.7 K/uL (1.0-5.5); LYMPHOCYTES % (AUTO) 11.3 % (20.5-51.5); MEAN CORPUSCULAR HEMOGLOBIN 36 pg (27-31); MEAN CORPUSCULAR HGB CONC 33 % (32-36); MEAN CORPUSCULAR VOLUME 107 fL (79.0-98.0); MONOCYTES # (AUTO) 0.4 K/uL (0.0-1.0); MONOCYTES % (AUTO) 6.5 % (1.7-9.3); NEUTROPHILS # (AUTO) 4.9 K/uL (1.8-7.7); PLATELET COUNT (AUTO) 132 K/uL (130-430); RED CELL DISTRIBUTION WIDTH 15.3 % (9.0-15.0)
--- NOTE | 2019-01-21 19:45 | NUR ---
Pt resting comfortably in bed with no signs of distress.
--- NOTE | 2019-01-21 20:12 | NUR ---
Note undone in EDM - 01/21/19 at 2017 by [email or web address] Patient given written and verbal discharge instructions and verbalizes understanding. ER MD Allison discussed with patient the results and treatment provided. Patient in stable condition. ID arm band removed. IV catheter removed intact and dressing applied, no active bleeding. No Rx given. Patient educated on pain management and to follow up with PMD. Pain Scale 0. Opportunity for questions provided and answered. Medication side effect fact sheet provided. Dial-a-ride ETA x 20 minutes. Pt was offered to stay in ED room until transportation arrives. Pt changed out of hospital gown and is laying comfortably in bed with no signs of distress. Pt was asked if he feels strong enough to walk; pt states "I could tapdance out of here!"
[2019-01-21 20:29] VITALS: BP_SYST 147
--- NOTE | 2019-01-21 20:29 | NUR ---
Pt transportation arrived. Pt ambulated out of ED with walker with steady gait. Pt refused wheelchair.
== END 2019-01-21 20:29 | disposition home or self-care (01) ==
LOC: SED 18:14
DX: N19 Unspecified kidney failure (principal); I10 Essential (primary) hypertension; E11.9 Type 2 diabetes mellitus without complications; J44.9 Chronic obstructive pulmonary disease, unspecified; I48.91 Unspecified atrial fibrillation; Z79.899 Other long term (current) drug therapy
CPT/HCPCS: 36415; 71045; 80053; 82962; 84484; 85025; 85610-TC; 85730-TC; 93005; 99284

== ENCOUNTER 2019-05-05 17:53 | Inpatient (IN) | payer MEDICARE ==
[~2019-05-05] VITALS: Ht 170.2 cm; Wt 53.6 kg
[2019-05-05 18:04] VITALS: BP_SYST 117
[2019-05-05] MEDS ORDERED: ASPIRIN 81 MG TAB.CHEW PO ONE (20:00)
[2019-05-05 20:24] LABS: BASOPHILS % (AUTO) 0.5 % (0.0-2.0); EOSINOPHILS # (AUTO) 0.1 K/uL (0.0-0.4); EOSINOPHILS % (AUTO) 0.9 % (0.0-4.0); HEMATOCRIT 34.8 % (36-54); HEMOGLOBIN 11.5 g/dL (14.0-18.0); LYMPHOCYTES # (AUTO) 0.5 K/uL (1.0-5.5); LYMPHOCYTES % (AUTO) 7.7 % (20.5-51.5); MEAN CORPUSCULAR HEMOGLOBIN 33 pg (27-31); MEAN CORPUSCULAR HGB CONC 33 % (32-36); MEAN CORPUSCULAR VOLUME 101 fL (79.0-98.0); MONOCYTES # (AUTO) 0.6 K/uL (0.0-1.0); MONOCYTES % (AUTO) 8.3 % (1.7-9.3); NEUTROPHILS # (AUTO) 5.6 K/uL (1.8-7.7); NEUTROPHILS % (AUTO) 82.6 % (40.0-70.0); PLATELET COUNT (AUTO) 145 K/uL (130-430); RED BLOOD CELL COUNT(AUTO) 3.45 MIL/uL (4.2-6.2); RED CELL DISTRIBUTION WIDTH 14.9 % (9.0-15.0); WHITE BLOOD COUNT (AUTO) 6.7 K/uL (4.8-10.8)
[2019-05-05 20:33] LABS: ANION GAP 8 (5-15); CALCIUM 8.4 mg/dL (8.4-11.0); CHLORIDE 105 mmol/L (98-107); CREATININE 4.48 mg/dL (0.55-1.30); GLUCOSE 84 mg/dL (70-99); POTASSIUM 5.3 mmol/L (3.5-5.1); SODIUM SERUM 138 mmol/L (136-145); UREA NITROGEN, BLOOD 39 mg/dL (8-21)
[2019-05-05 20:38] LABS: ALANINE AMINOTRANSFERASE 12 U/L (12-78); ALBUMIN 2.4 g/dL (3.4-4.8); ASPARTATE AMINOTRANSFERASE 6 U/L (10-37); LIPASE 64 U/L (73-393); TOTAL BILIRUBIN 0.6 mg/dL (0.0-1.0)
[2019-05-05 20:50] LABS: PROTHROMBIN TIME 10.1 SECS (9.5-12.5)
[2019-05-05] MEDS ORDERED: APIX2.5T PO (22:27)
[2019-05-05] MEDS ORDERED: PRO40 PO (22:27)
[2019-05-05] MEDS ORDERED: METO25TA6 PO (22:27)
[2019-05-05] MEDS ORDERED: HYDROcodone/ACETAMIN 5-325 MG TAB (NORCO/ VICODIN) PO PRN (22:45)
[2019-05-05] MEDS ORDERED: ACETAMINOPHEN 325 MG TABLET PO PRN (22:45)
[2019-05-05 23:30] VITALS: BP_SYST 114
[2019-05-06 01:18] VITALS: BP_SYST 114
[2019-05-06 01:40] LABS: BILIRUBIN,URINE NEGATIVE (NEGATIVE); BLOOD, URINE NEGATIVE (NEGATIVE); CLARITY/URINE CLEAR (CLEAR); COLOR,URINE YELLOW (YELLOW); GLUCOSE,URINE NEGATIVE (NEGATIVE); KETONES,URINE NEGATIVE (NEGATIVE); LEUKOCYTE ESTERASE ,URINE NEGATIVE (NEGATIVE); NITRITE, URINE NEGATIVE (NEGATIVE); PH,URINE 8.5 (5.0-8.0); PROTEIN URINE 2+ (NEGATIVE)
[2019-05-06 01:41] LABS: RBC,URINE 0-3 /HPF (0-3); WBC,URINE 0-3 /HPF (0-3)
[2019-05-06 01:42] LABS: BACTERIA,URINE FEW /HPF (None Seen)
[2019-05-06] MEDS: PANTOPRAZOLE SODIUM 40 MG TAB PO SCH (06:24)
[2019-05-06 08:35] VITALS: BP_SYST 130
[2019-05-06] MEDS: APIXABAN 2.5 MG TABLET PO SCH ×2 (08:47→22:31)
[2019-05-06] MEDS: METOPROLOL TARTRATE 25 MG TABLET PO SCH ×2 (08:48→21:00)
[2019-05-06 09:32] LABS: ALANINE AMINOTRANSFERASE 12 U/L (12-78); ALBUMIN 2.2 g/dL (3.4-4.8); ANION GAP 8 (5-15); ASPARTATE AMINOTRANSFERASE 8 U/L (10-37); CALCIUM 8.4 mg/dL (8.4-11.0); CHLORIDE 107 mmol/L (98-107); CREATININE 4.49 mg/dL (0.55-1.30); GLUCOSE 80 mg/dL (70-99); SODIUM SERUM 142 mmol/L (136-145); TOTAL BILIRUBIN 0.5 mg/dL (0.0-1.0); UREA NITROGEN, BLOOD 42 mg/dL (8-21)
[2019-05-06 16:12] VITALS: BP_SYST 128
[2019-05-06 22:39] VITALS: BP_SYST 102
[2019-05-07 00:38] VITALS: BP_SYST 102
[2019-05-07] MEDS: PANTOPRAZOLE SODIUM 40 MG TAB PO SCH (06:58)
[2019-05-07 07:45] VITALS: BP_SYST 118
[2019-05-07] MEDS: METOPROLOL TARTRATE 25 MG TABLET PO SCH ×2 (09:00→22:00)
[2019-05-07] MEDS ORDERED: HEPARIN SODIUM,PORCINE 5000 UNITS/ML VIAL IV ONE (09:45)
[2019-05-07] MEDS: APIXABAN 2.5 MG TABLET PO SCH ×2 (10:04→22:01)
[2019-05-07 12:05] VITALS: BP_SYST 124
[2019-05-07 16:03] VITALS: BP_SYST 116
[2019-05-07 20:00] VITALS: BP_SYST 119
[2019-05-08 00:20] VITALS: BP_SYST 110
[2019-05-08] MEDS: PANTOPRAZOLE SODIUM 40 MG TAB PO SCH (06:12)
[2019-05-08 07:35] LABS: TOTAL IRON BIND. CAPACITY 184 ug/dL (250-450)
[2019-05-08 07:48] LABS: ANION GAP 7 (5-15); CALCIUM 8.8 mg/dL (8.4-11.0); CHLORIDE 105 mmol/L (98-107); CREATININE 3.02 mg/dL (0.55-1.30); GLUCOSE 73 mg/dL (70-99); PHOSPHORUS 3.4 mg/dL (2.7-4.5); POTASSIUM 4.9 mmol/L (3.5-5.1); SODIUM SERUM 142 mmol/L (136-145); UREA NITROGEN, BLOOD 30 mg/dL (8-21)
[2019-05-08 08:30] VITALS: BP_SYST 117
[2019-05-08] MEDS: METOPROLOL TARTRATE 25 MG TABLET PO SCH ×2 (09:00→21:00)
[2019-05-08] MEDS: APIXABAN 2.5 MG TABLET PO SCH ×2 (09:22→21:43)
[2019-05-08 11:49] VITALS: BP_SYST 109
[2019-05-08 16:53] VITALS: BP_SYST 119
[2019-05-08 20:00] VITALS: BP_SYST 104
[2019-05-09 00:12] VITALS: BP_SYST 127
[2019-05-09] MEDS: PANTOPRAZOLE SODIUM 40 MG TAB PO SCH (06:05)
[2019-05-09 08:00] VITALS: BP_SYST 112
[2019-05-09] MEDS: METOPROLOL TARTRATE 25 MG TABLET PO SCH ×2 (09:23→21:00)
[2019-05-09] MEDS: APIXABAN 2.5 MG TABLET PO SCH ×2 (09:23→21:54)
[2019-05-09 11:30] VITALS: BP_SYST 127
[2019-05-09 15:32] VITALS: BP_SYST 136
[2019-05-09 20:45] VITALS: BP_SYST 94
[2019-05-10 00:19] VITALS: BP_SYST 113
[2019-05-10] MEDS: PANTOPRAZOLE SODIUM 40 MG TAB PO SCH (06:22)
[2019-05-10 08:00] VITALS: BP_SYST 110
[2019-05-10] MEDS: APIXABAN 2.5 MG TABLET PO SCH ×2 (09:12→21:01)
[2019-05-10] MEDS: METOPROLOL TARTRATE 25 MG TABLET PO SCH ×2 (09:13→21:00)
[2019-05-10 11:40] VITALS: BP_SYST 132
[2019-05-10 15:58] VITALS: BP_SYST 126
[2019-05-10] MEDS: INSULIN Lispro 100 UNITS/ML VIAL (humaLOG) SUBCUT PRN (17:22)
[2019-05-10] MEDS ORDERED: HEPARIN SODIUM,PORCINE 5000 UNITS/ML VIAL MC ONE (19:15)
[2019-05-10 20:00] VITALS: BP_SYST 99
[2019-05-11 01:34] VITALS: BP_SYST 136
[2019-05-11] MEDS: PANTOPRAZOLE SODIUM 40 MG TAB PO SCH (06:17)
[2019-05-11 09:13] VITALS: BP_SYST 118
[2019-05-11] MEDS: METOPROLOL TARTRATE 25 MG TABLET PO SCH ×2 (09:15→21:00)
[2019-05-11] MEDS: APIXABAN 2.5 MG TABLET PO SCH ×2 (09:16→21:01)
[2019-05-11 11:33] VITALS: BP_SYST 141
[2019-05-11 16:06] VITALS: BP_SYST 140
[2019-05-11 20:19] VITALS: BP_SYST 114
[2019-05-11] MEDS: DOCUSATE SODIUM 250 MG CAPSULE PO SCH (21:00)
[2019-05-12 02:14] VITALS: BP_SYST 120
[2019-05-12] MEDS: PANTOPRAZOLE SODIUM 40 MG TAB PO SCH (06:17)
[2019-05-12] MEDS ORDERED: HEPARIN SODIUM,PORCINE 5000 UNITS/ML VIAL IVP ONE (07:45)
[2019-05-12 07:50] VITALS: BP_SYST 123
[2019-05-12 12:00] VITALS: BP_SYST 108
[2019-05-12] MEDS: DOCUSATE SODIUM 250 MG CAPSULE PO SCH ×2 (12:27→20:49)
[2019-05-12] MEDS: APIXABAN 2.5 MG TABLET PO SCH ×2 (12:29→20:52)
[2019-05-12] MEDS: METOPROLOL TARTRATE 25 MG TABLET PO SCH ×2 (13:10→20:53)
[2019-05-12 16:00] VITALS: BP_SYST 100
[2019-05-12] MEDS ORDERED: BISACODYL 5 MG TABLET.DR (DULCOLAX) PO PRN (17:45)
[2019-05-12 19:48] VITALS: BP_SYST 96
[2019-05-13 00:06] VITALS: BP_SYST 99
[2019-05-13] MEDS: PANTOPRAZOLE SODIUM 40 MG TAB PO SCH (06:15)
[2019-05-13] MEDS: METOPROLOL TARTRATE 25 MG TABLET PO SCH ×2 (08:48→20:36)
[2019-05-13] MEDS: DOCUSATE SODIUM 250 MG CAPSULE PO SCH ×2 (08:49→20:36)
[2019-05-13] MEDS: APIXABAN 2.5 MG TABLET PO SCH ×2 (08:50→20:38)
[2019-05-13 09:08] VITALS: BP_SYST 104
[2019-05-13 11:28] VITALS: BP_SYST 115
[2019-05-13 15:25] VITALS: BP_SYST 124
[2019-05-13 19:00] VITALS: BP_SYST 102
[2019-05-13 20:00] VITALS: BP_SYST 102
[2019-05-13] MEDS: MIRTAZAPINE 15 MG TABLET PO SCH (20:36)
[2019-05-14 00:44] VITALS: BP_SYST 110
[2019-05-14] MEDS: PANTOPRAZOLE SODIUM 40 MG TAB PO SCH (06:08)
[2019-05-14 08:00] VITALS: BP_SYST 134
[2019-05-14] MEDS: MULTIVITAMINS TAB 1 TABLET PO SCH (08:54)
[2019-05-14] MEDS: DOCUSATE SODIUM 250 MG CAPSULE PO SCH ×2 (08:54→20:41)
[2019-05-14] MEDS: METOPROLOL TARTRATE 25 MG TABLET PO SCH ×2 (08:55→20:52)
[2019-05-14] MEDS: CYANOCOBALAMIN 1000 mCg TABLET SL SCH (08:55)
[2019-05-14] MEDS: APIXABAN 2.5 MG TABLET PO SCH ×2 (08:59→20:41)
[2019-05-14 09:40] LABS: BASOPHILS # (AUTO) 0.1 K/uL (0.0-0.2); BASOPHILS % (AUTO) 1.4 % (0.0-2.0); EOSINOPHILS # (AUTO) 0.2 K/uL (0.0-0.4); EOSINOPHILS % (AUTO) 4.6 % (0.0-4.0); HEMATOCRIT 33.3 % (36-54); HEMOGLOBIN 10.9 g/dL (14.0-18.0); LYMPHOCYTES # (AUTO) 0.7 K/uL (1.0-5.5); LYMPHOCYTES % (AUTO) 14.3 % (20.5-51.5); MEAN CORPUSCULAR HEMOGLOBIN 33 pg (27-31); MEAN CORPUSCULAR HGB CONC 33 % (32-36); MEAN CORPUSCULAR VOLUME 101 fL (79.0-98.0); MONOCYTES # (AUTO) 0.4 K/uL (0.0-1.0); MONOCYTES % (AUTO) 7.8 % (1.7-9.3); NEUTROPHILS # (AUTO) 3.4 K/uL (1.8-7.7); NEUTROPHILS % (AUTO) 71.9 % (40.0-70.0); PLATELET COUNT (AUTO) 262 K/uL (130-430); RED BLOOD CELL COUNT(AUTO) 3.29 MIL/uL (4.2-6.2); WHITE BLOOD COUNT (AUTO) 4.7 K/uL (4.8-10.8)
[2019-05-14 09:51] LABS: ANION GAP 5 (5-15); CALCIUM 8.2 mg/dL (8.4-11.0); CHLORIDE 106 mmol/L (98-107); CREATININE 2.97 mg/dL (0.55-1.30); GLUCOSE 95 mg/dL (70-99); POTASSIUM 4.7 mmol/L (3.5-5.1); SODIUM SERUM 141 mmol/L (136-145); UREA NITROGEN, BLOOD 31 mg/dL (8-21)
[2019-05-14] MEDS ORDERED: HEPARIN SODIUM,PORCINE 5000 UNITS/ML VIAL SUBCUT ONE (11:15)
[2019-05-14 11:28] VITALS: BP_SYST 136
[2019-05-14 16:01] VITALS: BP_SYST 113
[2019-05-14 20:00] VITALS: BP_SYST 94
[2019-05-14] MEDS: MIRTAZAPINE 15 MG TABLET PO SCH (20:41)
[2019-05-14] MEDS: INSULIN Lispro 100 UNITS/ML VIAL (humaLOG) SUBCUT PRN (20:52)
[2019-05-15 00:41] VITALS: BP_SYST 97
[2019-05-15] MEDS: PANTOPRAZOLE SODIUM 40 MG TAB PO SCH (06:06)
[2019-05-15] MEDS: METOPROLOL TARTRATE 25 MG TABLET PO SCH ×2 (08:10→20:13)
[2019-05-15] MEDS: MULTIVITAMINS TAB 1 TABLET PO SCH (08:10)
[2019-05-15] MEDS: DOCUSATE SODIUM 250 MG CAPSULE PO SCH ×2 (08:10→20:07)
[2019-05-15] MEDS: CYANOCOBALAMIN 1000 mCg TABLET SL SCH (08:11)
[2019-05-15] MEDS: APIXABAN 2.5 MG TABLET PO SCH ×2 (08:13→20:13)
[2019-05-15 09:06] VITALS: BP_SYST 109; BP_SYST 175
[2019-05-15 11:25] VITALS: BP_SYST 116
[2019-05-15 15:21] VITALS: BP_SYST 109
[2019-05-15 20:00] VITALS: BP_SYST 90
[2019-05-15] MEDS: MIRTAZAPINE 15 MG TABLET PO SCH (20:07)
[2019-05-16 01:06] VITALS: BP_SYST 92
[2019-05-16] MEDS: PANTOPRAZOLE SODIUM 40 MG TAB PO SCH (05:59)
[2019-05-16 08:07] VITALS: BP_SYST 126
[2019-05-16] MEDS: MULTIVITAMINS TAB 1 TABLET PO SCH (08:56)
[2019-05-16] MEDS: CYANOCOBALAMIN 1000 mCg TABLET SL SCH (08:57)
[2019-05-16] MEDS: METOPROLOL TARTRATE 25 MG TABLET PO SCH ×2 (08:57→21:00)
[2019-05-16] MEDS: DOCUSATE SODIUM 250 MG CAPSULE PO SCH ×2 (08:57→21:36)
[2019-05-16] MEDS: APIXABAN 2.5 MG TABLET PO SCH ×2 (08:59→21:37)
[2019-05-16 11:40] LABS: FOLATE (FOLIC ACID) 2.1 ng/mL (>3.0)
[2019-05-16 12:46] VITALS: BP_SYST 140
[2019-05-16 16:44] VITALS: BP_SYST 97
[2019-05-16 19:53] VITALS: BP_SYST 100
[2019-05-16] MEDS: MIRTAZAPINE 15 MG TABLET PO SCH (21:36)
[2019-05-17 03:10] VITALS: BP_SYST 126
[2019-05-17] MEDS: PANTOPRAZOLE SODIUM 40 MG TAB PO SCH (06:32)
[2019-05-17 08:22] VITALS: BP_SYST 134
[2019-05-17] MEDS: METOPROLOL TARTRATE 25 MG TABLET PO SCH ×3 (09:00→21:00)
[2019-05-17] MEDS: MULTIVITAMINS TAB 1 TABLET PO SCH (09:18)
[2019-05-17] MEDS: DOCUSATE SODIUM 250 MG CAPSULE PO SCH ×2 (09:18→21:32)
[2019-05-17] MEDS: CYANOCOBALAMIN 1000 mCg TABLET SL SCH (09:19)
[2019-05-17] MEDS: APIXABAN 2.5 MG TABLET PO SCH ×2 (09:19→21:38)
[2019-05-17] MEDS: HEPARIN SODIUM,PORCINE 5000 UNITS/ML VIAL MC SCH ×2 (10:47→10:49)
[2019-05-17 11:28] VITALS: BP_SYST 117
[2019-05-17 15:37] VITALS: BP_SYST 105
[2019-05-17 21:19] VITALS: BP_SYST 97
[2019-05-17] MEDS: MIRTAZAPINE 15 MG TABLET PO SCH (21:32)
[2019-05-18 00:46] VITALS: BP_SYST 116
[2019-05-18] MEDS: PANTOPRAZOLE SODIUM 40 MG TAB PO SCH (06:28)
[2019-05-18 08:00] VITALS: BP_SYST 101
[2019-05-18] MEDS: CYANOCOBALAMIN 1000 mCg TABLET SL SCH (08:35)
[2019-05-18] MEDS: DOCUSATE SODIUM 250 MG CAPSULE PO SCH ×2 (08:35→21:45)
[2019-05-18] MEDS: MULTIVITAMINS TAB 1 TABLET PO SCH (08:35)
[2019-05-18] MEDS: APIXABAN 2.5 MG TABLET PO SCH ×2 (08:36→21:48)
[2019-05-18] MEDS: METOPROLOL TARTRATE 25 MG TABLET PO SCH ×2 (08:37→21:47)
[2019-05-18 11:32] VITALS: BP_SYST 126
[2019-05-18 15:48] VITALS: BP_SYST 97
[2019-05-18 20:00] VITALS: BP_SYST 103
[2019-05-18] MEDS: MIRTAZAPINE 15 MG TABLET PO SCH (21:47)
[2019-05-19 02:36] VITALS: BP_SYST 99
[2019-05-19] MEDS: PANTOPRAZOLE SODIUM 40 MG TAB PO SCH (06:09)
[2019-05-19 08:00] VITALS: BP_SYST 97
[2019-05-19] MEDS: MULTIVITAMINS TAB 1 TABLET PO SCH (08:18)
[2019-05-19] MEDS: DOCUSATE SODIUM 250 MG CAPSULE PO SCH (08:18)
[2019-05-19] MEDS: CYANOCOBALAMIN 1000 mCg TABLET SL SCH (08:18)
[2019-05-19] MEDS: APIXABAN 2.5 MG TABLET PO SCH (08:19)
[2019-05-19] MEDS: METOPROLOL TARTRATE 25 MG TABLET PO SCH (08:19)
[2019-05-19 12:16] VITALS: BP_SYST 118
[2019-05-19 12:25] VITALS: BP_SYST 118
== END 2019-05-19 13:56 | DRG 535 ==
LOC: SED 17:53 → STU 22:29 → SMU 05-07 14:24
PROVIDERS: ADMIT Internal Medicine; ATTEND Internal Medicine
PROC: 5A1D70Z Performance of Urinary Filtration, Intermittent, Less than 6 Hours Per Day (ICD-10-PCS; principal; 2019-04-06)
PROC: 5A1D70Z Performance of Urinary Filtration, Intermittent, Less than 6 Hours Per Day (ICD-10-PCS; 2019-04-09)
PROC: 5A1D70Z Performance of Urinary Filtration, Intermittent, Less than 6 Hours Per Day (ICD-10-PCS; 2019-04-11)
PROC: 5A1D70Z Performance of Urinary Filtration, Intermittent, Less than 6 Hours Per Day (ICD-10-PCS; 2019-04-13)
PROC: 5A1D70Z Performance of Urinary Filtration, Intermittent, Less than 6 Hours Per Day (ICD-10-PCS; 2019-04-16)
DX: S72.111A Displaced fracture of greater trochanter of right femur, initial encounter for closed fracture (principal); N18.6 End stage renal disease; E43 Unspecified severe protein-calorie malnutrition; I13.2 Hypertensive heart and chronic kidney disease with heart failure and with stage 5 chronic kidney disease, or end stage renal disease; Z68.1 Body mass index [BMI] 19.9 or less, adult; E87.5 Hyperkalemia; E11.22 Type 2 diabetes mellitus with diabetic chronic kidney disease; I48.0 Paroxysmal atrial fibrillation; F03.90 Unspecified dementia, unspecified severity, without behavioral disturbance, psychotic disturbance, mood disturbance, and anxiety; I50.9 Heart failure, unspecified; S09.90XA Unspecified injury of head, initial encounter; F32.9 Major depressive disorder, single episode, unspecified; J44.9 Chronic obstructive pulmonary disease, unspecified; W01.0XXA Fall on same level from slipping, tripping and stumbling without subsequent striking against object, initial encounter; Z79.899 Other long term (current) drug therapy; Z87.81 Personal history of (healed) traumatic fracture; Z87.11 Personal history of peptic ulcer disease; Z87.891 Personal history of nicotine dependence; Z91.19 Patient's noncompliance with other medical treatment and regimen; Z98.84 Bariatric surgery status; Z99.2 Dependence on renal dialysis; Y93.89 Activity, other specified; Y92.89 Other specified places as the place of occurrence of the external cause; Y99.8 Other external cause status
CPT/HCPCS: 36415; 70450-TC; 71045; 71100; 73502; 73700-TC; 80048; 80053; 81000-TC; 82550-TC; 82607; 82746; 82962; 83540-TC; 83550-TC; 83690-TC; 83880; 84100-TC; 84484; 85025; 85610-TC; 85730-TC; 87081; 90935; 90937; 93005; 97110-GP; 97116-GP; 97530-GP; 99285; G0378; J1644; J7030